=== PATIENT | female | born 1955 | race Caucasian/White ===

== ENCOUNTER 2017-06-14 02:33 | Emergency (ER) | payer OTHER ==
[2017-06-14 03:11] VITALS: BP 138/78; PULSE 70; O2SAT 97
--- NOTE | 2017-06-14 03:28 | ERPHSYRPT ---
- History of Present Illness Time Seen by Provider: 06/14/17 03:13 Source: patient Exam Limitations: no limitations Patient Subjective Stated Complaint: pt states she has had pain and numbness in the lt arm off and on for last 8-9 mos. states she has pain, numbness and tingling in her lt arm that started again yesterday Triage Nursing Assessment: pt alert and oreinted, asnwers questions approp. pt ambulatory with steady gait noted. respirations nonlabored with lungs cta. 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 Physician History: 62-year-old white female who states that she is previously healthy. Arrives with complaint of intermittent shooting sharp pains in her left shoulder left posterior neck symptoms going on for 8-9 months she states she has intermittent tingling in her left arm. She has not had any movements problems no chest pain no shortness of breath she has no nausea no vomiting. Past medical history: Patient states she has a history of high blood pressure. Past surgical history includes hernia repair, hysterectomy, graft left hand secondary to a dog bite. Timing/Duration: other (patient states intermittent symptoms for 8-9 months) Severity: moderate Modifying Factors: Improves With: nothing Associated Symptoms: No nausea, No vomiting, No abdominal pain, No shortness of breath, No heartburn, No diaphoresis, No cough, No chills, No chest pain, No fever, No headaches, No loss of appetite, No malaise, No rash, No syncope, No seizure, No weakness Allergies/Adverse Reactions: bacitracin [From Neosporin ([id number])] Allergy (Verified 06/14/17 03:11) neomycin [From Neosporin ([id number])] Allergy (Verified 06/14/17 03:11) polymyxin B [From Neosporin ([id number])] Allergy (Verified 06/14/17 03:11) Hx Tetanus, Diphtheria Vaccination/Date Given: Yes Hx Influenza Vaccination/Date Given: No Hx Pneumococcal Vaccination/Date Given: No Immunizations Up to Date: Yes - Review of Systems Constitutional: No Fever, No Chills Eyes: No Symptoms Ears, Nose, & Throat: No Symptoms Respiratory: No Cough, No Dyspnea Cardiac: No Chest Pain, No Edema, No Syncope Abdominal/Gastrointestinal: No Abdominal Pain, No Nausea, No Vomiting, No Diarrhea Genitourinary Symptoms: No Dysuria Musculoskeletal: Neck Pain, Other (left shoulder pain) Skin: No Rash Neurological: No Dizziness, No Focal Weakness, No Sensory Changes Psychological: No Symptoms Endocrine: No Symptoms All Other Systems: Reviewed and Negative - Past Medical History Pertinent Past Medical History: No - Past Surgical History Past Surgical History: Yes Gastrointestinal: Hernia Repair Female Surgical History: Hysterectomy Other Surgical History: graft to lt hand d/t dog bite - Social History Smoking Status: Current every day smoker How long have you smoked: 45yrs Exposure to second hand smoke: Yes Drug Use: none Patient Lives Alone: No - Nursing Vital Signs Nursing Vital Signs: Initial Vital Signs Temperature 97.3 F 06/14/17 02:57 Pulse Rate 70 06/14/17 02:57 Respiratory Rate 16 06/14/17 02:57 Blood Pressure 138/78 06/14/17 02:57 O2 Sat by Pulse Oximetry 97 06/14/17 02:57 Pain Scale Pain Intensity [] 8 Pain Intensity 8 - Physical Exam General Appearance: no apparent distress, alert Eye Exam: PERRL/EOMI, eyes nml inspection Ears, Nose, Throat Exam: normal ENT inspection, TMs normal, pharynx normal, moist mucous membranes Neck Exam: normal inspection, non-tender, supple, full range of motion Respiratory Exam: normal breath sounds, lungs clear, No respiratory distress Cardiovascular Exam: regular rate/rhythm, normal heart sounds, normal peripheral pulses Gastrointestinal/Abdomen Exam: soft, normal bowel sounds, No tenderness, No mass Back Exam: normal inspection, normal range of motion, No CVA tenderness, No vertebral tenderness Extremity Exam: other (full range of motion left shoulder mild tendernes with palpation left proximal humerus laterally,mild pain with internal rotation left shoulder. Radial ulnar pulses intact and symmetrical 5/5. Mild tenderness with palpation and movement, left posterior lateral neck at the base) Neurologic Exam: alert, oriented x 3, cooperative, normal mood/affect, nml cerebellar function, nml station & gait, sensation nml, No motor deficits Skin Exam: normal color, warm, dry, No rash Lymphatic Exam: No adenopathy SpO2 Interpretation: normal (97%) SpO2: 97 Oxygen Delivery: Room Air - Course Nursing assessment & vital signs reviewed: Yes EKG Interpreted by Me: RATE (61 bpm), Sinus Rhythm, NORMAL AXIS, Other (EKG: Sinus rhythm, 61 bpm, normal axis, no acute ST or T wave changes noted) - Radiology Exams Left Shoulder X-ray Interpretation: Interpreted by me, Other (no fractures or subluxation) C-Spine X-ray Interpretation: Interpreted by me (degenerative changes no acute fractures or subluxation) Ordered Tests: Active Orders 24 hr Category Date Time Status EKG-ER Only STAT Care 06/14/17 03:20 Active IV Insertion STAT Care 06/14/17 03:20 Active CERVICAL SPINE (2 OR 3 VIEW) Stat Exams 06/14/17 03:21 Taken SHOULDER Stat Exams 06/14/17 03:22 Taken CBC W DIFF Stat Lab 06/14/17 03:45 Completed CMP Stat Lab 06/14/17 03:45 Completed TROPONIN Q3H Lab 06/14/17 03:45 Completed TROPONIN Q3H Lab 06/14/17 06:30 Ordered TROPONIN Q3H Lab 06/14/17 09:30 Ordered TROPONIN Q3H Lab 06/14/17 12:30 Ordered TROPONIN Q3H Lab 06/14/17 15:30 Ordered Medication Summary Discontinued Medications Generic Name Dose Route Start Last Admin Trade Name Freq PRN Reason Stop Dose Admin Ketorolac Tromethamine 60 mg 06/14/17 03:57 06/14/17 04:03 Toradol 30 Mg Injection IM 06/14/17 03:58 60 mg STAT ONE Administration Ketorolac Tromethamine Confirm 06/14/17 04:02 Toradol 30 Mg Injection Administered 06/14/17 04:03 Dose 60 mg .ROUTE .[facility] ONE Lab/Rad Data: Laboratory Result Diagrams 06/14/17 03:45 06/14/17 03:45 Laboratory Results 06/14/17 06/14/17 06/14/17 Range/Units 03:45 03:45 03:45 WBC 8.3 (4.0-10.5) K/mm3 RBC 4.90 (4.1-5.4) M/mm3 Hgb 15.1 (12.0-16.0) gm/dl Hct 45.4 (35-47) % MCV 92.7 (78-100) fl MCH 30.8 (26-32) pg MCHC 33.3 (32-36) g/dl RDW 14.1 H (11.5-14.0) % Plt Count 262 (150-450) K/mm3 MPV 10.9 H (6-9.5) fl Gran % 54.6 (36.0-66.0) % Lymphocytes % 30.5 (24.0-44.0) % Monocytes % 8.5 (0.0-12.0) % Eosinophils % 5.8 H (0.00-5.0) % Basophils % 0.6 (0.0-0.4) % Basophils # 0.05 (0-0.4) Sodium 137 (136-145) mEq/L Potassium 4.1 (3.5-5.1) mEq/L Chloride 103 (98-107) mEq/L Carbon Dioxide 25.9 (21-32) mEq/L Anion Gap 12.1 (5-15) MEQ/L BUN 15 (9-20) mg/dL Creatinine 0.82 (0.55-1.30) mg/dl Estimated GFR > 60 ML/MIN Glucose 110 (70-110) MG/DL Calcium 9.0 (8.5-10.1) mg/dL Total Bilirubin 0.20 (0.2-1.0) mg/dL AST 17 (15-37) U/L ALT 19 (12-78) U/L Alkaline Phosphatase 91 (46-116) U/L Troponin I < 0.017 (0.000-0.056) ng/ml Serum Total Protein 7.1 (6.4-8.2) gm/dL Albumin 3.8 (3.4-5.0) g/dL - Progress Progress: improved Progress Note: 06/14/17 03:26 This is a 62-year-old white female she arrives with complaint of pain in her left shoulder worse with movement occasional paresthesia to her left arm and pain in her left posterior neck worse with movement. On physical examination patient has some tenderness on her left lateral proximal humerus with palpation pain with internal rotation in her left shoulder and mild tenderness with movement and palpation left posterior neck at the base. Patient is not having any shortness of breath she has no chest pain. She does state that she has been talking with her family members and she is concerned that she might have some heart problems. She is currently not having any pain. She states that her symptoms have been going on for 8-9 months. She states she is not following up with her family physician. Will go ahead and obtain EKG cbc, CMP, troponin, x-ray left shoulder, C-spine really does not sound cardiac in etiology. 06/14/17 04:35 Patient's troponin and labs including CMP CBC essentially normal. X-ray of her neck shows degenerative changes no acute fractures no subluxation. X-ray of her left shoulder no fractures no subluxation. I have offered to repeat the patient's troponin I've told her I can't completely rule out heart problems without doing that she does not want to do this. Will discharge patient with Naprosyn 500 mg orally twice a day with food. Patient to follow-up with her family doctor or orthopedist (list). Return for acute distress or for severe symptoms. - Departure Time of Disposition: 04:37 Departure Disposition: Home Clinical Impression: Neck pain Left shoulder pain Qualifiers: Chronicity: chronic Qualified Code(s): M25.512 - Pain in left shoulder; G89.29 - Other chronic pain; G89.29 - Other chronic pain Condition: Fair Critical Care Time: No Instructions: Chronic Pain -- Adult Additional Instructions: Return home. Naprosyn 500 mg orally twice a day with food as needed for pain #20. Follow-up with your family doctor or your orthopedist (list). Return for acute distress or for severe symptoms. Prescriptions: Naproxen 500 mg [Naprosyn 500 MG] 500 mg PO BID #20 tablet
[2017-06-14 03:55] LABS: BASOPHIL % 0.6 % (0.0-0.4); Eosinophil % 5.8 % (0.00-5.0); Granulocytes % 54.6 % (36.0-66.0); Lymphocytes % 30.5 % (24.0-44.0); Mean Cell Volume 92.7 fl (78-100); Mean Corpuscular Hemoglobin 30.8 pg (26-32); Mean Platelet Volume 10.9 fl (6-9.5); Monocytes % 8.5 % (0.0-12.0); Platelet Count 262 K/mm3 (150-450); Red Cell Distribution Width 14.1 % (11.5-14.0); White Blood Count 8.3 K/mm3 (4.0-10.5)
[2017-06-14] MEDS ORDERED: TORAdol 30 mg Injection IM ONE (03:57)
[2017-06-14] MEDS ORDERED: TORAdol 30 mg Injection ONE (04:02)
[2017-06-14 04:19] LABS: ALBUMIN 3.8 g/dL (3.4-5.0); ALKALINE PHOSPHATASE 91 U/L (46-116); ANION GAP 12.1 MEQ/L (5-15); BLOOD UREA NITROGEN 15 mg/dL (9-20); CHLORIDE 103 mEq/L (98-107); Carbon Dioxide 25.9 mEq/L (21-32); Glucose 110 MG/DL (70-110); Potassium 4.1 mEq/L (3.5-5.1); SGOT/AST 17 U/L (15-37); SGPT/ALT 19 U/L (12-78); SODIUM 137 mEq/L (136-145); Total Protein 7.1 gm/dL (6.4-8.2)
--- NOTE | 2017-06-14 09:05 | XRAY ---
Indication: Posterior neck pain. Comparison: None 3 views of the cervical spine demonstrates slight straightening of the cervical lordosis, mild osteopenia, and moderate C4-C7 degenerative disc disease. No other bony, articular, or soft tissue abnormalities.
--- NOTE | 2017-06-14 09:06 | XRAY ---
Indication: Left shoulder pain. Comparison: None 3 views of the left shoulder demonstrates mild osteopenia. No other bony, articular, or soft tissue abnormalities.
== END 2017-06-14 04:20 | disposition home or self-care (01) ==
LOC: ED 02:33
DX: M54.2 Cervicalgia (principal); M25.512 Pain in left shoulder; G89.29 Other chronic pain
CPT/HCPCS: 36415; 72040; 73030; 80053; 84484; 85025; 96372; 99284; J1885